=== PATIENT | female | born 1955 | race Caucasian/White ===

== ENCOUNTER 2022-12-07 13:39 | Emergency (ER) | payer OTHER, SELFPAY ==
[~2022-12-07 13:39] MED LIST: Iopamidol 370 76% 200 ML VIAL ONE; Sodium Chloride 0.9% 100 ML BAG ONE
[2022-12-07] MEDS ORDERED: Ipratropium/Albuterol 3 ML NEB ONE (14:04)
[2022-12-07] MEDS ORDERED: methylPREDNISolone Sod Succ/PF 125 MG/2 ML VIAL ONE (14:19)
[2022-12-07 14:24] LABS: #Lymphocytes 0.9 thou/uL (1.20-3.40); #Monocytes 0.2 thou/uL (0.11-0.59); #Neutrophils 8.6 thou/uL (1.40-6.50); %Basophils 0.5 % (0.0-1.0); %Lymphocytes 9.5 % (21.0-51.0); %Monocytes 1.8 % (0.0-10.0); %Neutrophils 88.3 % (42.0-75.0); Hemoglobin 14.1 g/dL (12.0-16.0); Mean Corpuscular HGB CONC 32.2 g/dL (32.0-36.0); Mean Corpuscular Hemoglobin 29.7 pg (27.0-31.0); Mean Corpuscular Volume 92.1 fl (78.0-98.0); Mean Platelet Volume 8.5 fL (7.4-10.4); Platelet Count 353 10x3/uL (130-400); RBC Distribution Width 13.3 % (11.5-14.5); Red Blood Cell (RBC) Count 4.76 mill/uL (4.20-5.40); White Blood Cell (WBC) Count 9.7 10x3/uL (4.8-10.8)
[2022-12-07 14:37] LABS: ALT (SGPT) 12 U/L (8-55); AST (SGOT) 16 U/L (5-34); Albumin 4.4 g/dL (3.4-4.8); Alkaline Phosphatase 63 U/L (40-110); Anion Gap 24 mmol/L (10-20); BUN (Urea Nitrogen) 11 mg/dL (9.8-20.1); Bilirubin, Total 0.5 mg/dL (0.2-1.2); Calc. Creatinine Clearance 0 mL/min (70-130); Calcium 10.4 mg/dL (7.8-10.44); Carbon Dioxide 19 mmol/L (23-31); Chloride 94 mmol/L (98-107); Estimated GFR 56; Globulin 3.5 g/dL (2.4-3.5); Glucose 224 mg/dL (80-115); Lipase 19 U/L (8-78); Magnesium 1.6 mg/dL (1.6-2.6); Potassium 4.3 mmol/L (3.5-5.1); Protein, Total 7.9 g/dL (5.8-8.1); Sodium 133 mmol/L (136-145)
[2022-12-07 14:42] LABS: Base Excess-Venous -7.1 mmol/L (-2.0 to 3.0); Bicarbonate (HCO3v) 21.9 mmol/L (22.0-28.0); CO2 Tension (PvCO2) 55.8 mmHg (42.0-51.0); Calcium, Ionized 1.25 mmol/L (1.15-1.33); Chloride 97 mmol/L (98-107); Hemoglobin - Calc 17.2 g/dL (12.0-16.0); Potassium 4.2 mmol/L (3.5-5.1); Sodium 133 mmol/L (138-145); T. Carbon Dioxide 23.6 mmol/L (22.0-28.0); vO2 Saturation-calc 60.8 % (60.0-85.0)
[2022-12-07] MEDS ORDERED: Sodium Chloride 0.9% 1,000 ML ONE (14:44)
[2022-12-07] MEDS ORDERED: Insulin Regular 300 UNITS/3 ML VIAL ONE (14:51)
[2022-12-07 14:54] LABS: SARS-CoV-2 NAA Rapid Test Not Detected (NotDetected)
[2022-12-07 15:10] LABS: CKMB 1.8 ng/mL (0-6.6)
[2022-12-07] MEDS ORDERED: Vancomycin 1 GM VIAL ONE (16:09)
[2022-12-07] MEDS ORDERED: Cefepime 2 GM VIAL ONE (16:09)
[2022-12-07] MEDS ORDERED: Sodium Chloride 0.9% 250 ML 250 ML ONE (16:09)
[2022-12-07] MEDS ORDERED: Sodium Chloride 0.9% 100 ML ONE (16:09)
[2022-12-07] MEDS ORDERED: Magnesium 2 GM/50 ML BAG (IN WATER) ONE (17:03)
[2022-12-07 17:20] LABS: ALT (SGPT) 10 U/L (8-55); AST (SGOT) 15 U/L (5-34); Albumin 4.1 g/dL (3.4-4.8); Alkaline Phosphatase 59 U/L (40-110); Anion Gap 22 mmol/L (10-20); BUN (Urea Nitrogen) 10 mg/dL (9.8-20.1); Bilirubin, Total 0.4 mg/dL (0.2-1.2); Calc. Creatinine Clearance 0 mL/min (70-130); Calcium 9.3 mg/dL (7.8-10.44); Carbon Dioxide 18 mmol/L (23-31); Chloride 98 mmol/L (98-107); Estimated GFR 74; Globulin 3.2 g/dL (2.4-3.5); Glucose 143 mg/dL (80-115); Potassium 3.8 mmol/L (3.5-5.1); Protein, Total 7.3 g/dL (5.8-8.1); Sodium 134 mmol/L (136-145)
[2022-12-07 17:23] LABS: Lactic Acid 6.6 mmol/L (0.5-2.2)
[2022-12-07 17:28] LABS: Base Excess-Venous -8.9 mmol/L (-2.0 to 3.0); Bicarbonate (HCO3v) 20.5 mmol/L (22.0-28.0); CO2 Tension (PvCO2) 57.1 mmHg (42.0-51.0); Calcium, Ionized 1.12 mmol/L (1.15-1.33); Chloride 105 mmol/L (98-107); Hemoglobin - Calc 15.7 g/dL (12.0-16.0); Potassium 3.8 mmol/L (3.5-5.1); Sodium 135 mmol/L (138-145); T. Carbon Dioxide 22.3 mmol/L (22.0-28.0); vO2 Saturation-calc 95.6 % (60.0-85.0)
[2022-12-07] MEDS ORDERED: Albuterol 2.5 MG/0.5 ML NEB ONE (18:03)
== END 2022-12-07 17:25 | disposition short-term general hospital (02) ==
LOC: MADERS 13:39
DX: A41.9 Sepsis, unspecified organism (principal); J44.1 Chronic obstructive pulmonary disease with (acute) exacerbation; J80 Acute respiratory distress syndrome; E11.10 Type 2 diabetes mellitus with ketoacidosis without coma; R77.8 Other specified abnormalities of plasma proteins; R91.8 Other nonspecific abnormal finding of lung field; I10 Essential (primary) hypertension; F17.210 Nicotine dependence, cigarettes, uncomplicated
CPT/HCPCS: 36416; 71045; 71275; 74177; 80053; 82330; 82553; 82803; 83605; 83690; 83735; 83880; 84484; 85025; 87040; 93005; 96361; 96365; 96367; 96375; 36415-59; J0692; J1815; J2930; J3370; J3475; J7050; J7611; J7620

== ENCOUNTER 2023-10-11 18:26 | Emergency (ER) | payer MEDICARE, OTHER ==
[2023-10-11] MEDS ORDERED: Acetaminophen 500 MG TAB ONE (19:28)
[2023-10-11 20:03] LABS: #Basophils 0.1 thou/uL (0.0-0.2); #Lymphocytes 1.3 thou/uL (1.20-3.40); #Monocytes 0.4 thou/uL (0.11-0.59); #Neutrophils 7.2 thou/uL (1.40-6.50); %Basophils 1.1 % (0.0-1.0); %Eosinophils 0.5 % (0.0-10.0); %Monocytes 4.8 % (0.0-10.0); %Neutrophils 79.7 % (42.0-75.0); Hematocrit 30.4 % (36.0-47.0); Hemoglobin 9.3 g/dL (12.0-16.0); Mean Corpuscular HGB CONC 30.4 g/dL (32.0-36.0); Mean Corpuscular Volume 85.6 fl (78.0-98.0); Mean Platelet Volume 7.1 fL (7.4-10.4); Platelet Count 289 10x3/uL (130-400); RBC Distribution Width 16.7 % (11.5-14.5); Red Blood Cell (RBC) Count 3.56 mill/uL (4.20-5.40)
[2023-10-11 20:13] LABS: INR-International Normal Ratio 0.9; Prothrombin Time 12.4 sec (12.0-14.7)
[2023-10-11 20:14] LABS: PTT 30.2 sec (22.9-36.1)
[2023-10-11 20:23] LABS: ALT (SGPT) 13 U/L (8-55); AST (SGOT) 14 U/L (5-34); Albumin 3.8 g/dL (3.4-4.8); Alkaline Phosphatase 61 U/L (40-110); Anion Gap 16 mmol/L (10-20); BUN (Urea Nitrogen) 13 mg/dL (9.8-20.1); Bilirubin, Total 0.2 mg/dL (0.2-1.2); Calc. Creatinine Clearance 0 mL/min (70-130); Calcium 9.1 mg/dL (7.8-10.44); Carbon Dioxide 20 mmol/L (23-31); Chloride 105 mmol/L (98-107); Estimated GFR 61; Globulin 3.4 g/dL (2.4-3.5); Glucose 116 mg/dL (80-115); Potassium 4.2 mmol/L (3.5-5.1); Protein, Total 7.2 g/dL (5.8-8.1); Sodium 137 mmol/L (136-145)
== END 2023-10-11 21:40 | disposition short-term general hospital (02) ==
LOC: MADERS 18:26
DX: S72.011A Unspecified intracapsular fracture of right femur, initial encounter for closed fracture (principal); I10 Essential (primary) hypertension; I63.9 Cerebral infarction, unspecified; J44.9 Chronic obstructive pulmonary disease, unspecified; F17.210 Nicotine dependence, cigarettes, uncomplicated; W05.0XXA Fall from non-moving wheelchair, initial encounter
CPT/HCPCS: 80053; 85025; 85610; 85730; 93005

== ENCOUNTER 2024-01-22 16:22 | Emergency (ER) | payer OTHER ==
[2024-01-22] MEDS ORDERED: Ibuprofen 600 MG TAB ONE (16:41)
[2024-01-22] MEDS ORDERED: Sodium Chloride 0.9% 500 ML ONE (16:41)
[2024-01-22 16:57] LABS: Bilirubin Negative (Negative); Blood, Urine Small (Negative); Clarity Slightly Cloudy (Clear); Glucose, Urine (Dipstick) Negative (Negative); Ketone, Urine Negative (Negative); Leukocyte Moderate (Negative); Nitrite Positive (Negative); Protein, Urine (Dipstick) 100 mg/dL (Neg-Trace); Specific Gravity, Urine 1.015 (1.005-1.030); Urobilinogen 0.2 mg/dL (Less than 2); pH, Urine 6.5 (5.0-9.0)
[2024-01-22 17:00] LABS: ALT (SGPT) 57 U/L (8-55); AST (SGOT) 67 U/L (5-34); Albumin 3.3 g/dL (3.4-4.8); Alkaline Phosphatase 131 U/L (40-110); Anion Gap 19 mmol/L (10-20); Anisocytosis SLIGHT = 6-15 cells (100X) (0-5/hpf); BUN (Urea Nitrogen) 30 mg/dL (9.8-20.1); Band 25 % (5-11); Bilirubin, Total 0.4 mg/dL (0.2-1.2); Calc. Creatinine Clearance 0 mL/min (70-130); Calcium 9.7 mg/dL (7.8-10.44); Carbon Dioxide 20 mmol/L (23-31); Chloride 101 mmol/L (98-107); Estimated GFR 35; Globulin 4.6 g/dL (2.4-3.5); Glucose 147 mg/dL (80-115); Hematocrit 33.2 % (36.0-47.0); Hemoglobin 10.2 g/dL (12.0-16.0); Hypochromia SLIGHT = 6-15 cells (100X) (0-5/hpf); Lymphocytes 5 % (21-51); MDiff Complete? YES; Mean Corpuscular HGB CONC 30.6 g/dL (32.0-36.0); Mean Corpuscular Hemoglobin 25.6 pg (27.0-31.0); Mean Corpuscular Volume 83.7 fl (78.0-98.0); Mean Platelet Volume 6.1 fL (7.4-10.4); Monocytes 2 % (0-10); Neutrophil 68 % (42-75); Platelet Adequacy Comment Appears Adequate; Platelet Count 303 10x3/uL (130-400); Potassium 3.9 mmol/L (3.5-5.1); Protein, Total 7.9 g/dL (5.8-8.1); RBC Distribution Width 13.8 % (11.5-14.5); Red Blood Cell (RBC) Count 3.97 mill/uL (4.20-5.40); Sodium 136 mmol/L (136-145); White Blood Cell (WBC) Count 14.9 10x3/uL (4.8-10.8)
[2024-01-22 17:02] LABS: Bacteria/HPF 4+ HPF (None Seen); CAUTI Indications for Culture Fever or rigors; Squamous Epithelial 0-3 HPF (0-3); WBC/HPF Greater Than 50 HPF (0-3)
[2024-01-22 17:03] LABS: Urine Culture Reflex Yes Yes
[2024-01-22] MEDS ORDERED: Sodium Chloride 0.9% 1,000 ML ONE (17:03)
[2024-01-22] MEDS ORDERED: Sodium Chloride 0.9% 100 ML ONE (17:16)
[2024-01-22] MEDS ORDERED: cefTRIAXone (ROCEPHIN) 1 GM VIAL ONE (17:16)
[2024-01-22 17:36] LABS: SARS-CoV-2 E Target Negative; SARS-CoV-2 N2 Target Negative; SARS-CoV-2 NAA Rapid Test Not Detected (NotDetected); SARS-CoV-2 RdRP gene Negative
[2024-01-22] MEDS ORDERED: Ondansetron PF 4 MG/2 ML Vial ONE (19:00)
== END 2024-01-22 20:07 | disposition short-term general hospital (02) ==
LOC: MADERS 16:22
DX: R65.20 Severe sepsis without septic shock (principal); R91.8 Other nonspecific abnormal finding of lung field; N39.0 Urinary tract infection, site not specified; I10 Essential (primary) hypertension; F17.210 Nicotine dependence, cigarettes, uncomplicated
CPT/HCPCS: 71045; 80053; 81001; 83605; 85025; 87040; 87077; 87086; 87186; 87804 ×2; 93005; 96365; 96374; 99285; J0696; J2405; J7030 ×2; U0002

== ENCOUNTER 2024-02-20 16:09 | Emergency (ER) | payer OTHER ==
[2024-02-20] MEDS ORDERED: Ipratropium/Albuterol 3 ML NEB ONE (16:36)
[2024-02-20] MEDS ORDERED: Sodium Chloride 0.9% 1,000 ML ONE ×2 (16:37→22:49)
[2024-02-20 17:17] LABS: Anisocytosis SLIGHT = 6-15 cells (100X) (0-5/hpf); Band 36 % (5-11); Hematocrit 30.1 % (36.0-47.0); Hemoglobin 9.6 g/dL (12.0-16.0); Hypochromia SLIGHT = 6-15 cells (100X) (0-5/hpf); Lymphocytes 5 % (21-51); MDiff Complete? YES; Mean Corpuscular HGB CONC 32.1 g/dL (32.0-36.0); Mean Corpuscular Hemoglobin 27.2 pg (27.0-31.0); Mean Corpuscular Volume 84.9 fl (78.0-98.0); Mean Platelet Volume 8.3 fL (7.4-10.4); Monocytes 1 % (0-10); Neutrophil 58 % (42-75); Platelet Adequacy Comment Appears Adequate; Platelet Count 263 10x3/uL (130-400); RBC Distribution Width 15.5 % (11.5-14.5); Red Blood Cell (RBC) Count 3.54 mill/uL (4.20-5.40); White Blood Cell (WBC) Count 22.5 10x3/uL (4.8-10.8)
[2024-02-20 17:20] LABS: ALT (SGPT) 48 U/L (8-55); AST (SGOT) 62 U/L (5-34); Albumin 3.2 g/dL (3.4-4.8); Alkaline Phosphatase 136 U/L (40-110); Anion Gap 22 mmol/L (10-20); BUN (Urea Nitrogen) 37 mg/dL (9.8-20.1); Bilirubin, Total 0.6 mg/dL (0.2-1.2); Calc. Creatinine Clearance 0 mL/min (70-130); Calcium 8.9 mg/dL (7.8-10.44); Carbon Dioxide 20 mmol/L (23-31); Chloride 98 mmol/L (98-107); Estimated GFR 21; Globulin 4.2 g/dL (2.4-3.5); Glucose 113 mg/dL (80-115); Potassium 4.3 mmol/L (3.5-5.1); Protein, Total 7.4 g/dL (5.8-8.1); Sodium 136 mmol/L (136-145)
[2024-02-20 17:21] LABS: Troponin I Less than 0.010 ng/mL (< 0.028)
[2024-02-20] MEDS ORDERED: Ondansetron PF 4 MG/2 ML Vial ONE (17:35)
[2024-02-20] MEDS ORDERED: Acetaminophen 500 MG TAB ONE (17:35)
[2024-02-20 18:08] LABS: Bicarbonate (HCO3v) 22.4 mmol/L (22.0-28.0); CO2 Tension (PvCO2) 40.1 mmHg (42.0-51.0); Chloride 102 mmol/L (98-107); Hemoglobin - Calc 11.5 g/dL (12.0-16.0); Potassium 3.8 mmol/L (3.5-5.1); Sodium 134 mmol/L (138-145); T. Carbon Dioxide 23.6 mmol/L (22.0-28.0); vO2 Saturation-calc 70.3 % (60.0-85.0)
[2024-02-20] MEDS ORDERED: cefTRIAXone (ROCEPHIN) 1 GM VIAL ONE (18:52)
[2024-02-20] MEDS ORDERED: Sodium Chloride 0.9% 100 ML ONE (18:52)
[2024-02-20 18:53] LABS: Bilirubin Negative (Negative); Blood, Urine Moderate (Negative); Clarity Slightly Cloudy (Clear); Glucose, Urine (Dipstick) Negative (Negative); Ketone, Urine Negative (Negative); Leukocyte Small (Negative); Nitrite Negative (Negative); Protein, Urine (Dipstick) 100 mg/dL (Neg-Trace); Specific Gravity, Urine 1.015 (1.005-1.030)
[2024-02-20 18:57] LABS: CAUTI Indications for Culture Fever or rigors; RBC/HPF 21-50 HPF (0-3); WBC/HPF Greater Than 50 HPF (0-3)
[2024-02-20 18:58] LABS: Bacteria/HPF 4+ HPF (None Seen); Squamous Epithelial 0-3 HPF (0-3); Urine Culture Reflex Yes Yes
[2024-02-20] MEDS ORDERED: Ibuprofen 200 MG TAB ONE (19:14)
== END 2024-02-21 00:16 | disposition short-term general hospital (02) ==
LOC: MADERS 16:09
DX: R50.9 Fever, unspecified (principal); R00.0 Tachycardia, unspecified; R05.9 Cough, unspecified; R11.2 Nausea with vomiting, unspecified; I01.0 Acute rheumatic pericarditis; F17.210 Nicotine dependence, cigarettes, uncomplicated; J44.9 Chronic obstructive pulmonary disease, unspecified; Z79.899 Other long term (current) drug therapy
CPT/HCPCS: 71045; 80053; 81001; 82330; 82435; 82803; 83605; 84132; 84295; 84484; 85014; 85025; 87040; 87086; 87149 ×2; 93005; 94640; J0696; J2405; J7030; 36415; 51701; 87077; 87186; 96361; 96365; 96375; J7620

== ENCOUNTER 2024-04-02 07:23 | Emergency (ER) | payer OTHER ==
[2024-04-02 08:00] LABS: Hemoglobin 11.6 g/dL (12.0-16.0); Mean Corpuscular HGB CONC 30.7 g/dL (32.0-36.0); Mean Corpuscular Hemoglobin 26.3 pg (27.0-31.0); Mean Corpuscular Volume 85.8 fl (78.0-98.0); Mean Platelet Volume 7.7 fL (7.4-10.4); Platelet Count 475 10x3/uL (130-400); RBC Distribution Width 16.1 % (11.5-14.5); Red Blood Cell (RBC) Count 4.42 mill/uL (4.20-5.40); White Blood Cell (WBC) Count 16.4 10x3/uL (4.8-10.8)
[2024-04-02 08:04] LABS: Manual Diff?? YES
[2024-04-02] MEDS ORDERED: Cefepime 2 GM VIAL ONE (08:04)
[2024-04-02] MEDS ORDERED: Sodium Chloride 0.9% 100 ML ONE (08:04)
[2024-04-02 08:05] LABS: Anisocytosis SLIGHT = 6-15 cells (100X) (0-5/hpf); Band 6 % (5-11); Eosinophils 1 % (0-10); Lymphocytes 11 % (21-51); MDiff Complete? YES; Monocytes 2 % (0-10); Neutrophil 80 % (42-75); Platelet Adequacy Comment Appears Increased
[2024-04-02 08:09] LABS: Troponin I Less than 0.010 ng/mL (< 0.028)
[2024-04-02 08:10] LABS: ALT (SGPT) 12 U/L (8-55); AST (SGOT) 17 U/L (5-34); Albumin 3.3 g/dL (3.4-4.8); Alkaline Phosphatase 87 U/L (40-110); Anion Gap 28 mmol/L (10-20); BUN (Urea Nitrogen) 14 mg/dL (9.8-20.1); Bilirubin, Total 0.3 mg/dL (0.2-1.2); Calc. Creatinine Clearance 0 mL/min (70-130); Calcium 9.8 mg/dL (7.8-10.44); Carbon Dioxide 14 mmol/L (23-31); Chloride 93 mmol/L (98-107); Estimated GFR 33; Globulin 4.3 g/dL (2.4-3.5); Glucose 332 mg/dL (80-115); Magnesium 2.6 mg/dL (1.6-2.6); Potassium 4.5 mmol/L (3.5-5.1); Protein, Total 7.6 g/dL (5.8-8.1); Sodium 130 mmol/L (136-145)
[2024-04-02] MEDS ORDERED: Sodium Chloride 0.9% 500 ML ONE (08:27)
[2024-04-02] MEDS ORDERED: Sodium Chloride 0.9% 1,000 ML ONE (08:34)
[2024-04-02] MEDS ORDERED: Vancomycin 1 GM VIAL ONE (09:07)
[2024-04-02] MEDS ORDERED: Sodium Chloride 0.9% 250 ML 250 ML ONE (09:07)
[2024-04-02 09:21] LABS: Base Excess-Venous -7.3 mmol/L (-2.0 to 3.0); CO2 Tension (PvCO2) 30.6 mmHg (42.0-51.0); Calcium, Ionized 1.09 mmol/L (1.15-1.33); Chloride 99 mmol/L (98-107); Hemoglobin - Calc 13.6 g/dL (12.0-16.0); Potassium 4.2 mmol/L (3.5-5.1); Sodium 128 mmol/L (138-145); vO2 Saturation-calc 91.6 % (60.0-85.0)
[2024-04-02 10:53] LABS: Bilirubin Negative (Negative); Blood, Urine Trace (Negative); CAUTI Indications for Culture Dysuria,urgency,freq; Clarity Clear (Clear); Glucose, Urine (Dipstick) Negative (Negative); Ketone, Urine Negative (Negative); Leukocyte Trace (Negative); Nitrite Negative (Negative); Protein, Urine (Dipstick) 30 mg/dL (Neg-Trace); RBC/HPF 0-3 HPF (0-3); Specific Gravity, Urine 1.015 (1.005-1.030); Urobilinogen 0.2 mg/dL (Less than 2); WBC/HPF 21-50 HPF (0-3)
[2024-04-02 10:54] LABS: Bacteria/HPF 1+ HPF (None Seen); Urine Culture Reflex Yes Yes
== END 2024-04-02 13:32 | disposition short-term general hospital (02) ==
LOC: MADERS 07:23
DX: A41.9 Sepsis, unspecified organism (principal); R65.21 Severe sepsis with septic shock; J96.00 Acute respiratory failure, unspecified whether with hypoxia or hypercapnia; N17.9 Acute kidney failure, unspecified; J18.9 Pneumonia, unspecified organism; N39.0 Urinary tract infection, site not specified; J44.9 Chronic obstructive pulmonary disease, unspecified; R91.8 Other nonspecific abnormal finding of lung field; F17.210 Nicotine dependence, cigarettes, uncomplicated; Z79.899 Other long term (current) drug therapy
CPT/HCPCS: 71045; 71250; 80053; 81001; 82330; 82803; 83605; 83735; 83880; 84484; 85025; 87040; 87086; 87400; 87426; 93005; 94760; 96365; 96367; J0692; J3370; J7030; J7050

== ENCOUNTER 2025-05-14 19:49 | Emergency (ER) | payer OTHER ==
[2025-05-14] MEDS ORDERED: Albuterol 2.5 MG (0.5 mL) NEB ONE (20:18)
[2025-05-14] MEDS ORDERED: Ipratropium Bromide 2.5 ml Neb ONE (20:18)
[2025-05-14 20:38] LABS: #Basophils 0.1 thou/uL (0.0-0.2); #Eosinophils 0.1 thou/uL (0.0-0.7); #Lymphocytes 1.3 thou/uL (1.20-3.40); #Monocytes 0.6 thou/uL (0.11-0.59); #Neutrophils 8.8 thou/uL (1.40-6.50); %Basophils 1.0 % (0.0-1.0); %Eosinophils 0.7 % (0.0-10.0); %Lymphocytes 12.0 % (21.0-51.0); %Monocytes 5.6 % (0.0-10.0); %Neutrophils 80.7 % (42.0-75.0); Hematocrit 35.2 % (36.0-47.0); Hemoglobin 10.8 g/dL (12.0-16.0); Mean Corpuscular Hemoglobin 27.2 pg (27.0-31.0); Mean Corpuscular Volume 88.3 fl (78.0-98.0); Platelet Count 388 10x3/uL (130-400); Red Blood Cell (RBC) Count 3.99 mill/uL (4.20-5.40); White Blood Cell (WBC) Count 10.9 10x3/uL (4.8-10.8)
[2025-05-14 20:50] LABS: INR-International Normal Ratio 1.1; Prothrombin Time 14.1 sec (12.0-14.7)
[2025-05-14 20:51] LABS: PTT 38.6 sec (22.9-36.1)
[2025-05-14 21:01] LABS: ALT (SGPT) 71 U/L (Less than 34); AST (SGOT) 86 U/L (11-34); Albumin 2.7 g/dL (3.1-4.5); Alkaline Phosphatase 217 U/L (40-110); Anion Gap 17 mmol/L (10-20); BUN (Urea Nitrogen) 25 mg/dL (9.8-20.1); Bilirubin, Total 0.2 mg/dL (0.3-1.2); Calc. Creatinine Clearance 0 mL/min (70-130); Calcium 10.4 mg/dL (7.8-10.44); Carbon Dioxide 25 mmol/L (23-31); Chloride 97 mmol/L (98-107); Globulin 5.7 g/dL (2.4-3.5); Glucose 141 mg/dL (83-110); Magnesium 2.1 mg/dL (1.6-2.6); Potassium 4.3 mmol/L (3.5-5.1); Sodium 135 mmol/L (136-145)
[2025-05-14 21:03] LABS: Troponin I Less than 0.010 ng/mL (< 0.028)
[2025-05-14] MEDS ORDERED: Acetaminophen 500 MG TAB ONE (21:21)
[2025-05-14] MEDS ORDERED: Azithromycin 250 MG TAB ONE (21:21)
[2025-05-14] MEDS ORDERED: cefTRIAXone (ROCEPHIN) 1 GM VIAL ONE (21:21)
== END 2025-05-15 01:32 | disposition short-term general hospital (02) ==
LOC: MADERS 19:49
DX: A41.9 Sepsis, unspecified organism (principal); J96.01 Acute respiratory failure with hypoxia; J44.1 Chronic obstructive pulmonary disease with (acute) exacerbation; J18.9 Pneumonia, unspecified organism; Z20.828 Contact with and (suspected) exposure to other viral communicable diseases; Z87.891 Personal history of nicotine dependence; Z79.51 Long term (current) use of inhaled steroids
CPT/HCPCS: 71045; 80053; 83605; 83735; 83880; 84484; 85025; 85610; 85730; 87040; 87428; 93005; 96374; 96375; 99284; J0696; J2919; J7030; J7644; J7611